=== PATIENT | female | born 1975 | race Caucasian/White ===

== ENCOUNTER 2016-11-22 05:34 | Day surgery (SDC) | payer BC ==
--- NOTE | ~2016-11-22 | EGD ---
EGD REPORT [facility] [address] [address] NAME: ANNETTE SARMIENTO : [birth year] STATUS : [facility]#: [id number] AGE: 41 ADM/REG DATE : 11/22/16 MR#: [id number] REPORT SERV DATE: 12/12/16 DICTATED BY: DATE: REPORT STATUS : Draft TRANSCRIBED BY: [employer] DATE: 12/12/16 [facility] Patient Name: Annette Sarmiento Date of : 1975 Attending MD: LULU CEJA MD Procedure Date No Time: 11/22/2016 Procedure: Colonoscopy Indications: High risk colon cancer surveillance: Personal history of sessile serrated colon polyp (10 mm or greater in size) Referring MD: BROOKLYN DUKE Medicines: Monitored Anesthesia Care Complications: No immediate complications. Procedure: Pre-Anesthesia Assessment: - ASA Grade Assessment: III - A patient with severe systemic disease. After I obtained informed consent, the scope was passed under direct vision. Throughout the procedure, the patient's blood pressure, pulse, and oxygen saturations were monitored continuously. The PCF H190L [id number] was introduced through the anus and advanced to the cecum, identified by appendiceal orifice and ileocecal valve. The colonoscopy was performed without difficulty. The patient tolerated the procedure well. The quality of the bowel preparation was excellent. Findings: The perianal and digital rectal examinations were normal. Four flat polyps were found at the hepatic flexure. The polyps were 6 to 10 mm in size. These polyps were removed with a cold snare. Resection and retrieval were complete. Two flat polyps were found in the recto-sigmoid colon. The polyps were small in size. These polyps were removed with a cold snare. Resection and retrieval were complete. No other significant abnormalities were identified in a careful examination of the remainder of the colon. There is no endoscopic evidence of diverticula, inflammation, mass, ulcerations or angioectasia in the entire colon. Internal hemorrhoids were found during retroflexion and were small. No additional abnormalities were found on retroflexion. Impression: - Four 6 to 10 mm polyps at the hepatic flexure. Resected and retrieved. - Two small polyps at the recto-sigmoid colon. Resected and retrieved. - Internal hemorrhoids. EGD REPORT [address] [address] NAME: ANNETTE SARMIENTO : [birth year] STATUS : [facility]#: [id number] AGE: 41 ADM/REG DATE : 11/22/16 MR#: [id number] REPORT SERV DATE: 12/12/16 DICTATED BY: DATE: REPORT STATUS : Draft TRANSCRIBED BY: [email or web address] DATE: 12/12/16 Recommendation: - Patient has a contact number available for emergencies. The signs and symptoms of potential delayed complications were discussed with the patient. Return to normal activities tomorrow. Written discharge instructions were provided to the patient. - Discharge patient to home. - High fiber diet. - Continue present medications. - Await pathology results. - Repeat colonoscopy in 3 years for surveillance based on pathology results. Procedure Code(s): --- Professional --- 60644, Colonoscopy, flexible, proximal to splenic flexure; with removal of tumor(s), polyp(s), or other lesion(s) by snare technique Diagnosis Code(s): --- Professional --- D12.7, Benign neoplasm of rectosigmoid junction D12.3, Benign neoplasm of transverse colon K64.8, Other hemorrhoids Z86.010, Personal history of colonic polyps CPT copyright 2013 [employer]. All rights reserved. The codes documented in this report are preliminary and upon medical insurance coder review may be revised to meet current compliance requirements. LULU CEJA MD 11/22/2016 7:23 AM This report has been signed electronically. Number of Addenda: 0 Note Initiated On: 11/22/2016 6:48 AM Scope Withdrawal Time 0 hours 15 minutes 9 seconds [id number] [place] [id number]
--- NOTE | ~2016-11-22 | EGD ---
EGD REPORT [facility] [address] [address] NAME: ANNETTE SARMIENTO : [birth year] STATUS : [facility]#: [id number] AGE: 40 ADM/REG DATE : 11/22/16 MR#: [id number] REPORT SERV DATE: 11/22/16 DICTATED BY: DATE: REPORT STATUS : Draft TRANSCRIBED BY: [employer] DATE: 11/22/16 [facility] Patient Name: Annette Sarmiento Date of : 1975 Attending MD: LULU CEJA MD Procedure Date No Time: 11/22/2016 Procedure: Colonoscopy Indications: High risk colon cancer surveillance: Personal history of sessile serrated colon polyp (10 mm or greater in size) Referring MD: BROOKLYN DUKE Medicines: Monitored Anesthesia Care Complications: No immediate complications. Procedure: Pre-Anesthesia Assessment: - ASA Grade Assessment: III - A patient with severe systemic disease. After I obtained informed consent, the scope was passed under direct vision. Throughout the procedure, the patient's blood pressure, pulse, and oxygen saturations were monitored continuously. The PCF H190L [id number] was introduced through the anus and advanced to the cecum, identified by appendiceal orifice and ileocecal valve. The colonoscopy was performed without difficulty. The patient tolerated the procedure well. The quality of the bowel preparation was excellent. Findings: The perianal and digital rectal examinations were normal. Four flat polyps were found at the hepatic flexure. The polyps were 6 to 10 mm in size. These polyps were removed with a cold snare. Resection and retrieval were complete. Two flat polyps were found in the recto-sigmoid colon. The polyps were small in size. These polyps were removed with a cold snare. Resection and retrieval were complete. No other significant abnormalities were identified in a careful examination of the remainder of the colon. There is no endoscopic evidence of diverticula, inflammation, mass, ulcerations or angioectasia in the entire colon. Internal hemorrhoids were found during retroflexion and were small. No additional abnormalities were found on retroflexion. Impression: - Four 6 to 10 mm polyps at the hepatic flexure. Resected and retrieved. - Two small polyps at the recto-sigmoid colon. Resected and retrieved. - Internal hemorrhoids. EGD REPORT [address] [address] NAME: ANNETTE SARMIENTO : [birth year] [place]US : [facility] [place]#: [id number] AGE: 40 ADM/REG DATE : 11/22/16 MR#: [id number] REPORT SERV DATE: 11/22/16 DICTATED BY: DATE: REPORT STATUS : Draft TRANSCRIBED BY: [email or web address] SERVICES DATE: 11/22/16 Recommendation: - Patient has a contact number available for emergencies. The signs and symptoms of potential delayed complications were discussed with the patient. Return to normal activities tomorrow. Written discharge instructions were provided to the patient. - Discharge patient to home. - High fiber diet. - Continue present medications. - Await pathology results. - Repeat colonoscopy in 3 years for surveillance based on pathology results. Procedure Code(s): --- Professional --- 37535, Colonoscopy, flexible, proximal to splenic flexure; with removal of tumor(s), polyp(s), or other lesion(s) by snare technique Diagnosis Code(s): --- Professional --- D12.7, Benign neoplasm of rectosigmoid junction D12.3, Benign neoplasm of transverse colon K64.8, Other hemorrhoids Z86.010, Personal history of colonic polyps CPT copyright 2013 [employer]. All rights reserved. The codes documented in this report are preliminary and upon service dismantler review may be revised to meet current compliance requirements. LULU CEJA MD 11/22/2016 7:23 AM This report has been signed electronically. Number of Addenda: 0 Note Initiated On: 11/22/2016 6:48 AM Scope Withdrawal Time 0 hours 15 minutes 9 seconds [id number] [place] [id number]
[~2016-11-22 05:34] MED LIST: ARMOUR THYRO30 MG PO; BYDUREON2 MG SQ; GLUCPH PO; LOP25 PO; LOP50 PO; PROTONIX PO; REQUIP2 PO; TRULICITY0.75 MG/0. SQ; VITAMIN D31000 UNIT PO
== END 2016-11-22 23:59 | disposition home or self-care (01) ==
LOC: DMU 05:34
PROVIDERS: Internal Medicine Gastroenterology
PROC: 0DBL8ZX Excision of Transverse Colon, Via Natural or Artificial Opening Endoscopic, Diagnostic (ICD-10-PCS; 2016-11-22)
PROC: 0DBN8ZX Excision of Sigmoid Colon, Via Natural or Artificial Opening Endoscopic, Diagnostic (ICD-10-PCS; principal; 2016-11-22 07:00)
DX: D12.3 Benign neoplasm of transverse colon (principal); K63.5 Polyp of colon; K64.8 Other hemorrhoids; I34.0 Nonrheumatic mitral (valve) insufficiency; I10 Essential (primary) hypertension; K21.9 Gastro-esophageal reflux disease without esophagitis; E03.9 Hypothyroidism, unspecified; E11.9 Type 2 diabetes mellitus without complications; Z86.010 Personal history of colon polyps; Z90.89 Acquired absence of other organs; Z90.49 Acquired absence of other specified parts of digestive tract; Z90.710 Acquired absence of both cervix and uterus; Z98.890 Other specified postprocedural states
CPT/HCPCS: 82962; 88305